=== PATIENT | male | born 1960 | race Caucasian/White ===

== ENCOUNTER 2020-01-31 06:00 | Outpatient (RCR) | payer OTHER, SELFPAY | END 2020-01-31 23:59 | disposition home or self-care (01) | LOC: SOT 06:00 | PROVIDERS: PCP Emergency Medicine Emergency Medical Services; Referring Provider Specialist; Visit Provider Specialist | DX: M77.12 Lateral epicondylitis, left elbow (principal) | CPT/HCPCS: 97035; 97140; 97165 ==

== ENCOUNTER 2020-02-01 06:00 | Outpatient (RCR) | payer OTHER, SELFPAY | END 2020-03-01 23:59 | disposition home or self-care (01) | LOC: SOT 06:00 | PROVIDERS: PCP Emergency Medicine Emergency Medical Services; Referring Provider Specialist; Visit Provider Specialist | DX: M77.12 Lateral epicondylitis, left elbow (principal) | CPT/HCPCS: 97035; 97110; 97140 ==

== ENCOUNTER 2020-10-17 10:37 | Emergency (ER) | payer OTHER, SELFPAY ==
[2020-10-17 11:02] VITALS: BP 126/78; PULSE 72; RESP 16; TEMP 36.5; O2SAT 96; BMI 27.7
--- NOTE | 2020-10-17 12:44 | W.ED.EXTPRO ---
HPI - Extremity Problem General: Chief complaint: Extremity Problem,Nontraumatic Stated complaint: Bilateral arm pain/left worse Time Seen by Provider: 10/17/20 12:28 Source: patient Mode of arrival: ambulatory Limitations: no limitations History of Present Illness: HPI Narrative: Patient is a nice 60-year-old male who presents to ED today with a complaint of left elbow pain. Patient tells me he has had the pain for over a year. He states at one time he followed up with Dr. Black who diagnosed him with a left elbow tendinitis. He underwent 6 weeks of physical therapy and states he did feel like this helped with his symptoms. He states a few months ago [place] the farm and re-injured it. He states pain has been more bothersome since then. He denies redness, swelling, color/temperature changes to the extremity. Denies numbness/tingling/loss of sensation. Pain is worse with range of motion. He has been using an elbow sleeve/compression to help with discomfort. MD Complaint: extremity pain and joint pain Onset (ago): month(s) Pain Consistency: constant Location: left and elbow Quality: aching Radiation: none Relieving factors: nothing Exacerbating factors: range of motion Associated symptoms: Reports no associated symptoms; Deny chest pain, fever(s) or rash Review of Systems Const: Denies: fever(s) or chills Card: Denies: chest pain Resp: Denies: dyspnea Musc: Reports: joint pain (L elbow); Denies: neck pain, back pain, extremity swelling, joint swelling, joint stiffness or limited range of motion Skin/Breast: Denies: rash Neuro: Denies: numbness in extremities, weakness in extremities or sensory changes PFS ED PFSH: Social History Smoking and tobacco status: never smoked Alcohol intake: current Alcohol intake frequency: few times a month Physical Exam Const: COMMON NORMALS: no acute distress, average body habitus, patient oriented x3, no limitations, healthy appearing, alert and well nourished Extremity: COMMON NORMALS: normal to inspection, full ROM and capillary refill normal GENERAL: Yes normal exam except as noted OTHER: pt has pain to lateral epicondyle and into forearm EXTREMITY IMAGE (FRONT): 1. area of discomfort Neuro: COMMON NORMALS: patient oriented x3, moves all extremities, no focal motor deficits and no sensory deficits noted SENSORIUM/ORIENTATION: Yes alert Skin: COMMON NORMALS: no rashes or lesions noted GENERAL SKIN EXAM: no rashes or lesions noted TRAUMA: no lacerations or abrasions Course Vital Signs: Vital signs: Vital Signs Temperature 97.7 F 10/17/20 11:02 Pulse Rate 72 10/17/20 11:02 Respiratory Rate 16 10/17/20 11:02 Blood Pressure 126/78 10/17/20 11:02 Pulse Oximetry 96 10/17/20 11:02 MDM - Extremity (Nontraumatic) MDM Narrative: Medical decision making narrative: Will treat with IM steroids and steroid taper at home. ME has already placed referral to get patient another appointment with Dr. Black for further evaluation. Discharge Plan Discharge Patient Disposition: Home Clinical Impression: Lateral epicondylitis of left elbow Condition: Stable Prescriptions: New prednisone 10 mg tablet 10 mg PO DAILY 10 Days Qty: 41 RF: 0 No Action omeprazole 20 mg capsule,delayed release(DR/EC) 20 mg PO BID RF: 0 Discharge Orders: Discharge ED (Routine); Ordered 10/17/20 Ordered By: Amy Sung Referrals: Kaveh Zheng DO [Primary Care Provider] - Patient Instructions: Tendinitis (ED) Coding Level of Care Code ED Tannery Gummer for Chg Fwd Exam Expanded Problem Focused
[2020-10-17] MEDS: dexamethasone 10 mg/mL INJ 8 MG IM (12:51)
== END 2020-10-17 13:19 | disposition home or self-care (01) ==
PROVIDERS: Emergency Provider Physician Assistant; PCP Emergency Medicine Emergency Medical Services
DX: M77.12 Lateral epicondylitis, left elbow (principal)
CPT/HCPCS: 96372; 99283; J1100

== ENCOUNTER → 2020-11-15 10:13 | Outpatient (BNVA) | payer OTHER, SELFPAY | PROVIDERS: PCP Emergency Medicine Emergency Medical Services; Referring Provider Emergency Medicine Emergency Medical Services; Visit Provider Specialist | DX: M77.12 Lateral epicondylitis, left elbow (principal) | CPT/HCPCS: 73080 ==

== ENCOUNTER 2020-11-15 10:58 | Outpatient (CLI) | payer OTHER, SELFPAY ==
[2020-11-15 11:54] LABS: Alanine Aminotransferase 20 U/L (0-41); Albumin Level 4.4 g/dL (3.5-5.2); Alkaline Phosphatase 63 IU/L (40-130); Anion Gap 12.4 (5-19); Aspartate Amino Transferase 17 U/L (0-40); Blood Urea Nitrogen 13 mg/dL (6-20); C Reactive Protein 1.2 mg/L (0.0-4.9); Calcium 8.8 mg/dL (8.5-10.5); Carbon Dioxide 26 mmol/L (22-29); Chloride 105 mmol/L (98-107); Globulin 2.8 g/dL (1.3-4.6); Glomerular Filtration Rate 115.8 mL/min (90-130); Glucose 107 mg/dL (65-115); Osmolality Calculated 289 mOsm/kg (285-295); Potassium 4.4 mmol/L (3.5-5.1); Sodium 139 mmol/L (136-145); Total Bilirubin 0.5 mg/dL (0.15-1.2); Total Protein 7.2 g/dL (6.6-8.7)
[2020-11-15 12:04] LABS: Erythrocyte Sedimentation Rate 9 mm/hr (0-10)
[2020-11-16 13:04] LABS: COMPLEMENT COMPONENT C3C 128 mg/dL (82-185); COMPLEMENT COMPONENT C4C 29 mg/dL (15-53)
[2020-11-16 14:43] LABS: ANA SCREEN, IFA NEGATIVE (NEGATIVE)
[2020-11-16 15:17] LABS: CENTROMERE B ANTIBODY <1.0 NEG AI (<1.0 NEG); JO-1 ANTIBODY <1.0 NEG AI (<1.0 NEG); RNP ANTIBODY 3.2 POS AI (<1.0 NEG); SCL-70 ANTIBODY <1.0 NEG AI (<1.0 NEG); SJOGREN'S ANTIBODY (SS-A) <1.0 NEG AI (<1.0 NEG); SM ANTIBODY <1.0 NEG AI (<1.0 NEG); SS-B <1.0 NEG AI (<1.0 NEG)
[2020-11-16 15:47] LABS: Cyclic Citrullinated Peptide <16 UNITS
[2020-11-16 18:37] LABS: THYROID PEROXIDASE ANTIBODIES 2 IU/mL (<9)
[2020-11-17 12:28] LABS: COMPLEMENT, TOTAL (CH50) 60 U/mL (31-60)
[2020-11-22 01:48] LABS: DNA AB (DS) CRITHIDIA,IFA NEGATIVE (NEGATIVE)
== END 2020-11-15 10:59 | disposition home or self-care (01) ==
PROVIDERS: PCP Emergency Medicine Emergency Medical Services; Visit Provider Specialist
DX: M77.12 Lateral epicondylitis, left elbow (principal)
CPT/HCPCS: 80053; 85651; 86140; 86160; 86162; 86235; 86255; 86376; 86431

== ENCOUNTER → 2021-01-17 07:51 | Outpatient (BNVA) | payer OTHER, SELFPAY | PROVIDERS: PCP Emergency Medicine Emergency Medical Services; Visit Provider Specialist | DX: G56.01 Carpal tunnel syndrome, right upper limb (principal); G56.21 Lesion of ulnar nerve, right upper limb; M77.12 Lateral epicondylitis, left elbow; M62.522 Muscle wasting and atrophy, not elsewhere classified, left upper arm; Z87.891 Personal history of nicotine dependence | CPT/HCPCS: 95885; 95910; 99202 ==

== ENCOUNTER 2022-08-03 07:31 | Emergency (ER) | payer OTHER, SELFPAY ==
[2022-08-03 07:42] VITALS: BP 132/86; PULSE 86; RESP 18; TEMP 36.4; O2SAT 94; BMI 27.7
--- NOTE | 2022-08-03 08:00 | ED_ITS ---
HPI - Eye Problem General: Chief complaint: Eye Problems Stated complaint: right eye pain Time Seen by Provider: 08/03/22 07:34 History of Present Illness: Patient is a 62-year-old male who comes to the ED with right eye pain. Symptoms started approximately 5 days ago. Denies any le ft eye complaint. [facility] couple days ago and was started on azithromycin. He has been taking the azithromycin now for several days and his eye pain has not improved and is gotten worse. He rates the pain an 5 out of 10 and feels like a pressure in his right eye. He has had blurry vision since onset of symptoms. Patient has pain in right eye with any ocular movements. Denies any foreign body or irritant into eye, causing symptoms. Patient wears glasses to help with his vision and reading. Associated symptoms: Denies fever(s), headache(s), nausea, neck pain or vomiting Review of Systems Const: Denies: fever(s), chills or fatigue Eyes: Reports: blurry vision (Right eye) and eye discomfort (Right eye); Denies: change in vision ENMT: Denies: throat pain, odynophagia, nasal discharge or nasal congestion Card: Denies: chest pain, palpitations, edema, swelling of feet/ankles, dyspnea on exertion or orthopnea Resp: Denies: dyspnea, productive cough or non-productive cough GI: Denies: abdominal pain, nausea, vomiting, diarrhea, constipation or hematochezia : Denies: flank pain, difficulty urinating, dysuria or hematuria Musc: Denies: neck pain, back pain or extremity swelling Skin/Breast: Denies: rash or new lesions Neuro: Denies: headache(s), numbness in extremities or weakness in extremities PFS ED PFSH: Medical History GERD (gastroesophageal reflux disease) No pertinent family history Social History Smoking and tobacco status: former smoker Alcohol intake: current Alcohol intake frequency: few times a month Physical Exam Const: COMMON NORMALS: no acute distress, patient oriented x3 and alert GENERAL APPEARANCE: cooperative and comfortable HENMT: COMMON NORMALS: normocephalic HEAD & SCALP: normocephalic FACE & SINUS: edema (Mild periorbital and maxillofacial swelling.) on the right periorbital and maxilla MOUTH: Normal oral and palatal mucosa present THROAT: posterior oropharynx normal and uvula midline Eye: COMMON NORMALS: Equal, round and reactive pupils present and EOMs intact bilaterally (Endorsed pain with ocular movements) PERIORBITAL: periorbital findings abnormal positive right periorbital swelling (Mild swelling); no erythema CONJUNCTIVA: Yes conjunctival abnormal positive right conjunctival injection (Very mild eye redness) diffuse PUPIL: Yes Equal, round and reactive pupils present OTHER: Tonometer pressures checked multiple times in right eye?22 mmHg Neck/C-Spine: COMMON NORMALS: supple GENERAL: Yes normal visual inspection Resp: COMMON NORMALS: normal respiratory effort, No retractions, No use of accessory muscles and clear to auscultation bilaterally AUSCULTATION: clear to auscultation bilaterally Cardio: COMMON NORMALS: regular rate, regular rhythm, S1 normal heart sound present, S2 normal heart sound present, No gallops present (Cardio), No clicks present (Cardio), No murmurs present (Cardio) and Peripheral pulses 2+ throughout RATE: regular rate RHYTHM: regular rhythm HEART SOUNDS: S1 normal heart sound present and S2 normal heart sound present PERIPHERAL PULSES: Peripheral pulses 2+ throughout GI: COMMON NORMALS: Normal to inspection, nondistended, normoactive bowel sounds present, Soft to palpation, non-tender and no masses PALPATION: Yes Soft to palpation : COMMON NORMALS: Yes no CVA tenderness BLADDER/KIDNEY EXAM: Yes no CVA tenderness Back/Pelvis: COMMON NORMALS: no CVA tenderness Extremity: COMMON NORMALS: normal to inspection Neuro: COMMON NORMALS: patient oriented x3 SENSORIUM/ORIENTATION: Yes alert GAIT: Yes Normal gait present Skin: GENERAL SKIN EXAM: dry skin Course Consultations: Consultation #1: I contacted Dr. Kaveh M[facility]quez at [facility] and told about patient case, labs and CT orbital findings. Given patient's complaint of right eye pain and blurriness, exam findings described and labs he thinks the lateral orbital cellulitis is more of an over read by radiologist on CT report. He recommends giving patient an TobraDex eyedrops. and some of the other differential diagnosis can be further evaluated at clinic on Friday morning. He told me to have patient call Dr[facility] on Friday to set up an appointment for further evaluation later that day. Time: 10:45 Vital Signs: Vital signs: Vital Signs Temperature 97.5 F L 08/03/22 07:42 Pulse Rate 86 08/03/22 07:42 Respiratory Rate 18 08/03/22 07:42 Blood Pressure 132/86 08/03/22 07:42 Pulse Oximetry 98 08/03/22 09:31 Oxygen Delivery Me thod 08/03/22 09:31 MDM - Eye Problem Medical Decision Making Patient is a 62-year-old male comes to the ED with right eye pain and blurry vision. Symptoms have been going on for the past 5 days. Denies any irritant or foreign body in eye. Vitals are stable. Patient has some very mild periorbital right maxillary facial swelling and some mild right eye conjunct ivitis. Right eye tonometer was 22 mmHg. full range of motion of extraocular movements but did endorse some right eye pain with movement. Rest of exam is benign and patient appears healthy and in no acute distress. I contacted Dr. Kaveh M[facility]quez at [facility] and told about patient case, labs and CT orbital findings. Given patient's complaint of right eye pain and blurriness, exam findings described and labs he thinks the lateral orbital cellulitis is more of an over read by radiologist on CT report. He recommends giving patient TobraDex eyedrops. some of the other differential diagnosis can be further evaluated at clinic on Friday morning. He told me to have patient call Dr. Arnold s eye clinic on Friday to set up an appointment for later that day for further evaluation. Lab Data I reviewed the patient's lab results. 08/03/22 08:10 08/03/22 08:[address] 08/03/22 08:02 IMPRESSION: No acute intracranial pathology. Orbit CT 08/03/22 08:02 IMPRESSION: 1. Bilateral inflammatory stranding surrounding the globe margins fairly symmetric. 2. Bilateral soft tissue inflammatory stranding surrounding the margin of extraocular muscles and optic nerves with asymmetric accentuated right optic nerve and greater soft tissue changes of the extraocular musculature margins on the right. The overall differential diagnostic consideration of above described findings might include a process of nonspecific bilateral orbital cellulitis, thyroid eye disease, orbital pseudotumor, optic Perineuritis, Periscleritis. Laboratory Results WBC 6.2 10^3/uL (4.0-10.0) 08/03/22 08:10 RBC 4.49 10^6/uL (4.1-5.3) 08/03/22 08:10 Hgb 14.5 g/dL (11.7-16.6) 08/03/22 08:10 Hct 42.1 % (42.0-52.0) 08/03/22 08:10 MCV 93.8 fl (80-94) 08/03/22 08:10 MCH 32.3 pg (28.0-34.0) 08/03/22 08:10 MCHC 34.4 g/dL (30.0-36.0) 08/03/22 08:10 RDW 11.4 % (12.1-15.1) L 08/03/22 08:10 Plt Count 220 10^3/cmm (130-400) 08/03/22 08:10 MPV 10.0 fL (7.4-10.4) 08/03/22 08:10 Neut % (Auto) 59.3 % 08/03/22 08:10 Lymph % (Auto) 28.7 % 08/03/22 08:10 [place] % (Auto) 9.5 % 08/03/22 08:10 Eos % (Auto) 1.4 % 08/03/22 08:10 Baso % (Auto) 0.8 % 08/03/22 08:10 Neut # (Auto) 3.68 10^3/uL (1.8-7.7) 08/03/22 08:10 Lymph # (Auto) 1.8 10^3/uL (0.8-4.8) 08/03/22 08:10 [place] # (Auto) 0.6 10^3/uL (0.2-0.9) 08/03/22 08:10 Eos # (Auto) 0.1 10^3/uL (0.0-0.8) 08/03/22 08:10 Baso # (Auto) 0.1 10^3/uL (0.0-0.1) 08/03/22 08:10 Nucleated RBC % (auto) 0 % 08/03/22 08:10 Nucleated RBCs # 0.0 /100WBC 08/03/22 08:10 Sodium 132 mmol/L (136-145) L 08/03/22 08:10 Potassium 4.2 mmol/L (3.5-5.1) 08/03/22 08:10 Chloride 97 mmol/L (98-107) L 08/03/22 08:10 Carbon Dioxide 24 mmol/L (22-29) 08/03/22 08:10 Anion Gap 15.2 (5-19) 08/03/22 08:10 BUN 11 mg/dL (8-23) 08/03/22 08:10 Creatinine 0.7 mg/dL (0.7-1.2) 08/03/22 08:10 GFR Calculation 115.0 mL/min (90-130) 08/03/22 08:10 Glucose 107 mg/dL (65-115) 08/03/22 08:10 Calculated Osmolality 274 mOsm/kg (285-295) L 08/03/22 08:10 Calcium 9.2 mg/dL (8.5-10.5) 08/03/22 08:10 Discharge Plan Discharge Patient Disposition: Home Clinical Impression: Ocular pain, right eye Conjunctivitis, right eye Qualifiers: Conjunctivitis type: acute Acute conjunctivitis type: unspecified Qualified Code(s): H10.31 - Unspecified acute conjunctivitis, right eye Condition: Stable Prescriptions: New TobraDex 0.3-0.1 % drops,suspension 2 drp ophthalmic (eye) Q6H 7 Days Qty: 5 0RF No Action omeprazole 20 mg capsule,delayed release(DR/EC) 20 mg PO BID multivitamin Tablet 1 tab PO DAILY Fish Oil Concentrate 1,000 mg Capsule 1,000 mg PO DAILY CoQ-10 30 mg Capsule 30 mg PO DAILY ezetimibe 10 mg Tablet 10 mg PO DAILY Discharge Orders: Discharge ED (Routine); Ordered 08/03/22 Ordered By: Matthew Patel Referrals: Kaveh Zheng, DO [Primary Care Provider] - Discharge Diet: Regular Discharge Activity: Resume usual activity Activity Restrictions/Additional Instructions: Follow-up with medical provider as directed. Call Dr[facility] on Friday morning phone number is [phone]. Address is [address] [place]. take medications as prescribed. Return to the ER or your medical pr ovider if condition worsens. Please read and understand discharge instructions. If any questions, please ask. Coding Level of Care Code ED Survey Research Manager for Gabe El
--- NOTE | 2022-08-03 08:02 | CTR_ITS ---
PROCEDURE INFORMATION: Exam: CT Orbits With Contrast Exam date and time: 08/03/2022 9:00 AM Age: 62 years old Clinical indication: Other: Right eye pain, pain with occular movements, facial swelling TECHNIQUE: Imaging protocol: Computed tomography of the orbits with contrast. Radiation optimization: All CT scans at this facility use at least one of these dose optimization techniques: automated exposure control; mA and/or kV adjustment per patient size (includes targeted exams where dose is matched to clinical indication); or iterative reconstruction. Contrast material: OMNI 350; Contrast volume: 75 ml; Contrast route: INTRAVENOUS (IV); REPORTING DATA: Count of CT and Cardiac NM exams in prior 12 months: This patient has received [address] and 0 known cardiac nuclear medicine studies in the 12 months prior to the current study. COMPARISON: CT cervical spine w con [id number] 06/16/2018 10:40 AM RADIATION DOSE METRICS: Total DLP (mGy-cm): 410.7 FINDINGS: Paranasal sinuses: Focal mucosal thickening of the left maxillary sinus incompletely included. Mild mucosal thickening of ethmoid sinuses. Orbital cavities: There is fairly symmetric soft tissue thickening and stranding at the globe margins bilaterally. The globes are symmetric. Lens position is symmetric and symmetric in size. There is minor stranding and irregular margination of the optic nerves bilaterally. Asymmetric accentuated right optic nerve relative to the left with diameter of the right optic nerve maximal 7.8 mm and maximum diameter of the left optic nerve 0.68 mm. Bones/joints: Minor deviation of the bony nasal septum. Soft tissues: There is mild soft tissue edema disorder inflammatory stranding surrounding the margin extraocular musculature bilaterally with greatest involvement on the right. There is no enhancing fluid collection to suggest abscess. There is no significant inflammatory stranding within the retro conal fat. There is no significant expansion of extraocular musculature. CT/CT [place] w con [id number] IMPRESSION: 1. Bilateral inflammatory stranding surrounding the globe margins fairly symmetric. 2. Bilateral soft tissue inflammatory stranding surrounding the margin of extraocular muscles and optic nerves with asymmetric accentuated right optic nerve and greater soft tissue changes of the extraocular musculature margins on the right. The overall differential diagnostic consideration of above described findings might include a process of nonspecific bilateral orbital cellulitis, thyroid eye disease, orbital pseudotumor, optic Perineuritis, Periscleritis.
--- NOTE | 2022-08-03 08:02 | CTR_ITS ---
PROCEDURE INFORMATION: Exam: CT Head Without Contrast Exam date and time: 08/03/2022 9:00 AM Age: 62 years old Clinical indication: Other: Right eye vision change TECHNIQUE: Imaging protocol: Computed tomography of the head without contrast. Radiation optimization: All CT scans at this facility use at least one of these dose optimization techniques: automated exposure control; mA and/or kV adjustment per patient size (includes targeted exams where dose is matched to clinical indication); or iterative reconstruction. REPORTING DATA: Count of CT and Cardiac NM exams in prior 12 months: This patient has received [address] and 0 known cardiac nuclear medicine studies in the 12 months prior to the current study. COMPARISON: None RADIATION DOSE METRICS: Total DLP (mGy-cm): 1259.7 FINDINGS: Brain: Symmetric prominence of the cortical and cerebellar sulci. Minimal small vessel ischemic change. No acute cortical infarct, mass effect, or intracranial hemorrhage. Cerebral ventricles: Normal configuration of the ventricles. Paranasal sinuses: No sinus fluid. Mastoid air cells: No mastoid effusion. Bones/joints: No acute calvarial pathology. Soft tissues: Unremarkable soft tissues. CT/CT head wo con* [id number] IMPRESSION: No acute intracranial pathology.
[2022-08-03] MEDS: HYDROcodone-acetaminophen 7.5-325 mg Tablet 1 TAB PO (08:16)
[2022-08-03 08:27] LABS: Basophils # 0.1 10^3/uL (0.0-0.1); Basophils % 0.8 %; Eosinophils # 0.1 10^3/uL (0.0-0.8); Eosinophils % 1.4 %; Hematocrit 42.1 % (42.0-52.0); Hemoglobin 14.5 g/dL (11.7-16.6); Lymphocytes # 1.8 10^3/uL (0.8-4.8); Lymphocytes % 28.7 %; Mean Corpuscular HGB Conc 34.4 g/dL (30.0-36.0); Mean Corpuscular Hemoglobin 32.3 pg (28.0-34.0); Mean Corpuscular Volume 93.8 fl (80-94); Monocytes # 0.6 10^3/uL (0.2-0.9); Monocytes % 9.5 %; Neutrophils # 3.68 10^3/uL (1.8-7.7); Neutrophils % 59.3 %; Nucleated Red Blood Cells % 0 %; Platelet Count 220 10^3/cmm (130-400); Red Blood Count 4.49 10^6/uL (4.1-5.3); Red Cell Distribution Width 11.4 % (12.1-15.1); White Blood Count 6.2 10^3/uL (4.0-10.0)
[2022-08-03 08:48] LABS: Blood Urea Nitrogen 11 mg/dL (8-23); Calcium 9.2 mg/dL (8.5-10.5); Carbon Dioxide 24 mmol/L (22-29); Chloride 97 mmol/L (98-107); Glucose 107 mg/dL (65-115); Osmolality Calculated 274 mOsm/kg (285-295); Sodium 132 mmol/L (136-145)
[2022-08-03 09:08] LABS: Anion Gap 15.2 (5-19); Potassium 4.2 mmol/L (3.5-5.1)
[2022-08-03] MEDS: iohexol 350 mg/mL 500 mL Btl (per mL) IV (09:28)
[2022-08-03 09:31] VITALS: O2SAT 98
[2022-08-03] MEDS: cefTRIAXone 2,000 MG in sodium chloride 0.9% (plus) 50 ML 100 MG IV (10:48)
== END 2022-08-03 11:17 | disposition home or self-care (01) ==
PROVIDERS: Emergency Provider Physician Assistant; PCP Emergency Medicine Emergency Medical Services
DX: H10.31 Unspecified acute conjunctivitis, right eye (principal)
CPT/HCPCS: 70450; 70481; 80048; 85025; 96374; 99285; J0696; Q9967

== ENCOUNTER 2022-08-04 08:31 | Emergency (ER) | payer OTHER, SELFPAY ==
[2022-08-04 08:36] VITALS: BP 146/87; PULSE 84; RESP 14; TEMP 36.7; O2SAT 96; BMI 27.7
[2022-08-04 09:04] LABS: Basophils # 0.1 10^3/uL (0.0-0.1); Basophils % 0.7 %; Eosinophils # 0.1 10^3/uL (0.0-0.8); Eosinophils % 0.9 %; Hematocrit 43.6 % (42.0-52.0); Lymphocytes # 1.8 10^3/uL (0.8-4.8); Lymphocytes % 26.3 %; Mean Corpuscular HGB Conc 34.4 g/dL (30.0-36.0); Monocytes # 0.5 10^3/uL (0.2-0.9); Monocytes % 7.1 %; Neutrophils # 4.49 10^3/uL (1.8-7.7); Neutrophils % 64.7 %; Nucleated Red Blood Cells % 0 %; Platelet Count 254 10^3/cmm (130-400); Red Blood Count 4.54 10^6/uL (4.1-5.3); Red Cell Distribution Width 11.7 % (12.1-15.1); White Blood Count 6.9 10^3/uL (4.0-10.0)
--- NOTE | 2022-08-04 09:13 | W.ED.EYEPROB ---
Documented by User: Yenifer Paez PA-C 08/04/22 09:47 HPI - Eye Problem General: Chief complaint: Eye Problems Stated complaint: right eye pain Time Seen by Provider: 08/04/22 08:57 Source: patient Mode of arrival: ambulatory Limitations: no limitations History of Present Illness: 62-year-old male presents to the ER for the second time in 24 hours for right eye pain. Patient reports this began about 7 days ago. Patient thought he had a sinus infection and was seen by his PCP. Patient was given azithromycin. Patient reports he took a couple of doses of that however the pain started worsening. Patient reports his vision started getting more blurry. Patient has pain with any movement of the right eye. He denies any redness of that eye or redness surrounding that eye. Patient reports he was seen yesterday and given eyedrops, he did start those. Patient reports since then he has had worsening blurry vision and worsening headache. He reports there is still pain with movement of the right eye. Patient reports he has never had this before. He denies any family history of any eye issues. Patient denies any systemic symptoms such as abnormal weight loss or fevers. Patient reports prior to Friday or Friday of last week he did not have any issues. Review of Systems General: Reports: 10 or more systems reviewed and unremarkable except in HPI and below PFSH ED PFSH: Medical History GERD (gastroesophageal reflux disease) No pertinent family history Social History Smoking and tobacco status: former smoker Alcohol intake: current Alcohol intake frequency: few times a month Physical Exam Const: COMMON NORMALS: average body habitus, patient oriented x3, no limitations, healthy appearing, alert and well nourished HENMT: COMMON NORMALS: normocephalic, atraumatic, external ears normal, Normal nasal mucous membranes and turbinates present and moist oral mucous membranes HEAD & SCALP: normocephalic and atraumatic NOSE: Normal nasal mucous membranes and turbinates present EXTERNAL EAR: Yes external ears normal Eye: COMMON NORMALS: Equal, round and reactive pupils present, EOMs intact bilaterally and conjunctivae normal GENERAL EYE: appearance normal, both eyes and all related structures VISUAL ACUITY: Yes visual acuity right eye Visual acuity (R) = 20/: 200 VISUAL JOHNSON: No peripheral vision loss and No central vision loss ALIGNMENT: Yes alignment normal PERIORBITAL: periorbital findings normal (no erythema or swelling) EYELID: eyelids normal CONJUNCTIVA: Yes conjunctivae normal SCLERA: sclerae normal CORNEA: Yes corneas normal PUPIL: Yes Equal, round and reactive pupils present EOM: Yes EOM abnormal (pain with movement) Resp: COMMON NORMALS: normal respiratory effort EFFORT & INSPECTION: Yes able to speak in complete sentences Cardio: COMMON NORMALS: regular rate and regular rhythm RATE: regular rate RHYTHM: regular rhythm Extremity: COMMON NORMALS: no pedal edema Neuro: COMMON NORMALS: patient oriented x3 SENSORIUM/ORIENTATION: Yes alert Psych: COMMON NORMALS: mental status grossly normal, Normal thought process present and cooperative THOUGHT PROCESS: Normal thought process present Skin: COMMON NORMALS: no rashes or lesions noted and no wounds GENERAL SKIN EXAM: no rashes or lesions noted Course ED course: Patient presents to the ER today for worsening eye pain and blurry vision. Patient was seen yesterday. Patient was given eyedrops however even with using them symptoms have worsened. Patient's case was discussed with Dr. Márquez yesterday who thought that the CT was likely an over read. CT indicated possible cellulitis versus neuritis. Dr. Márquez and the PA in the ER yesterday did not feel it was likely a cellulitis given physical exam findings. We will get a CBC today. I will also call Dr. Márquez back about this patient. I will also speak with Dr. Candelaria. Consultations: Consultation #1: I spoke with Dr. Márquez, eye doctor, who still thinks this is an issue of an optic neuritis versus orbital cellulitis. Patient's physical exam findings are not of a cellulitis. The conjunctivitis normal-appearing and there is no erythema surrounding the eye, no obvious swelling. Dr. Márquez will have patient seen for Hartmann in the morning. He recommends 1 mg/kg of prednisone x1 week. Also recommends adding doxycycline twice daily for 7 to 10 days. Recommends Solu-Medrol given in the ER today. Time: 09:20 Vital Signs: Vital signs: Vital Signs Temperature 98.1 F 08/04/22 08:36 Pulse Rate 84 08/04/22 08:36 Respiratory Rate 14 08/04/22 08:36 Blood Pressure 146/87 08/04/22 08:36 Pulse Oximetry 96 08/04/22 08:36 Oxygen Delivery Me thod 08/04/22 08:36 MDM - Eye Problem Medical Decision Making Patient's white count is normal. Patient does have significantly worsened vision however after speaking with Dr. Márquez, this is to be expected with a neuritis. He suspects an optic neuritis of unknown cause at this time. Patient's pain has also worsened as has his headache. Dr. Márquez recommended significant doses of steroids. He would recommend Solu-Medrol in the ER followed by 1 mg/kg daily of prednisone for 1 week. He also recommends going ahead and starting patient on doxycycline 100 mg twice daily. Patient should contact Dr. Márquez clinic first thing in the morning and he will be seen by them again. At that time they will order a prednisone taper for patient to follow after his week of high-dose prednisone. Patient and were educated about the plan of treatment. Patient should continue the eyedrops at this time. Patient was also given hydrocodone for pain. He did take 1 prior to arrival which seemed to help some. I stressed the importance of following up with Dr. Márquez tomorrow. Return to the ER with any significantly worsening symptoms. Patient verbalized understanding and was in agreement with the treatment plan. Lab Data 08/04/22 08:52 Laboratory Results WBC 6.9 10^3/uL (4.0-10.0) 08/04/22 08:52 RBC 4.54 10^6/uL (4.1-5.3) 08/04/22 08:52 Hgb 15.0 g/dL (11.7-16.6) 08/04/22 08:52 Hct 43.6 % (42.0-52.0) 08/04/22 08:52 MCV 96.0 fl (80-94) H 08/04/22 08:52 MCH 33.0 pg (28.0-34.0) 08/04/22 08:52 MCHC 34.4 g/dL (30.0-36.0) 08/04/22 08:52 RDW 11.7 % (12.1-15.1) L 08/04/22 08:52 Plt Count 254 10^3/cmm (130-400) 08/04/22 08:52 MPV 10.0 fL (7.4-10.4) 08/04/22 08:52 Neut % (Auto) 64.7 % 08/04/22 08:52 Lymph % (Auto) 26.3 % 08/04/22 08:52 Trimble % (Auto) 7.1 % 08/04/22 08:52 Eos % (Auto) 0.9 % 08/04/22 08:52 Baso % (Auto) 0.7 % 08/04/22 08:52 Neut # (Auto) 4.49 10^3/uL (1.8-7.7) 08/04/22 08:52 Lymph # (Auto) 1.8 10^3/uL (0.8-4.8) 08/04/22 08:52 Trimble # (Auto) 0.5 10^3/uL (0.2-0.9) 08/04/22 08:52 Eos # (Auto) 0.1 10^3/uL (0.0-0.8) 08/04/22 08:52 Baso # (Auto) 0.1 10^3/uL (0.0-0.1) 08/04/22 08:52 Nucleated RBC % (auto) 0 % 08/04/22 08:52 Nucleated RBCs # 0.0 /100WBC 08/04/22 08:52 ESR 35 mm/hr (0-10) H 08/04/22 08:52 C-Reactive Protein 3.0 mg/L (0.0-4.9) 08/04/22 08:52 Critical Care Time Critical Care Time: Critical Care Time: No Discharge Plan Discharge Patient Disposition: Home Clinical Impression: Optic neuritis, right Condition: Stable Prescriptions: New prednisone 20 mg tablet 80 mg PO DAILY 7 Days Qty: 28 0RF doxycycline hyclate 100 mg tablet 100 mg PO BID 10 Days Qty: 20 0RF hydrocodone-acetaminophen 5-325 mg tablet 1 tab PO Q6H PRN (Reason: pain) 3 Days Qty: 12 0RF No Action omeprazole 20 mg capsule,delayed release(DR/EC) 20 mg PO BID multivitamin Tablet 1 tab PO DAILY Fish Oil Concentrate 1,000 mg Capsule 1,000 mg PO DAILY CoQ-10 30 mg Capsule 30 mg PO DAILY ezetimibe 10 mg Tablet 10 mg PO DAILY TobraDex 0.3-0.1 % drops,suspension 2 drp ophthalmic (eye) Q6H 7 Days Qty: 5 0RF Discharge Orders: Discharge ED (Routine); Ordered 08/04/22 Ordered By: Yenifer Paez Referrals: Kaveh Zheng DO [Primary Care Provider] - Discharge Diet: Usual diet Discharge Activity: Resume usual activity Patient Instructions: Opioid Safety, Pain Management Activity Restrictions/Additional Instructions: Contact Dr. Márquez's office first thing in the morning for appointment. Take prednisone as prescribed. Take hydrocodone as prescribed. Return to the ER with any significantly worsening symptoms. Coding Level of Care Code ED [employer] Caretaker for Chg Fwd Documented by User: Jose Alfredo Garcia DO 08/05/22 06:43 HPI - Eye Problem General: Chief complaint: Eye Problems Stated complaint: right eye pain Time Seen by Provider: 08/04/22 08:57 PFSH ED PFSH: Medical History GERD (gastroesophageal reflux disease) No pertinent family history Social History Smoking and tobacco status: former smoker Alcohol intake: current Alcohol intake frequency: few times a month Course Vital Signs: Vital signs: Vital Signs Temperature 98.1 F 08/04/22 08:36 Pulse Rate 84 08/04/22 08:36 Respiratory Rate 14 08/04/22 08:36 Blood Pressure 146/87 08/04/22 08:36 Pulse Oximetry 96 08/04/22 08:36 Oxygen Delivery Me thod 08/04/22 08:36 MDM - Eye Problem Medical Decision Making Patient's white count is normal. Patient does have significantly worsened vision however after speaking with Dr. Márquez, this is to be expected with a neuritis. He suspects an optic neuritis of unknown cause at this time. Patient's pain has also worsened as has his headache. Dr. Márquez recommended significant doses of steroids. He would recommend Solu-Medrol in the ER followed by 1 mg/kg daily of prednisone for 1 week. He also recommends going ahead and starting patient on doxycycline 100 mg twice daily. Patient should contact Dr. Márquez clinic first thing in the morning and he will be seen by them again. At that time they will order a prednisone taper for patient to follow after his week of high-dose prednisone. Patient and were educated about the plan of treatment. Patient should continue the eyedrops at this time. Patient was also given hydrocodone for pain. He did take 1 prior to arrival which seemed to help some. I stressed the importance of following up with Dr. Márquez tomorrow. Return to the ER with any significantly worsening symptoms. Patient verbalized understanding and was in agreement with the treatment plan. Chart reviewed and patient discussed with midlevel. Agree with assessment and plan. Lab Data 08/04/22 08:52 Laboratory Results WBC 6.9 10^3/uL (4.0-10.0) 08/04/22 08:52 RBC 4.54 10^6/uL (4.1-5.3) 08/04/22 08:52 Hgb 15.0 g/dL (11.7-16.6) 08/04/22 08:52 Hct 43.6 % (42.0-52.0) 08/04/22 08:52 MCV 96.0 fl (80-94) H 08/04/22 08:52 MCH 33.0 pg (28.0-34.0) 08/04/22 08:52 MCHC 34.4 g/dL (30.0-36.0) 08/04/22 08:52 RDW 11.7 % (12.1-15.1) L 08/04/22 08:52 Plt Count 254 10^3/cmm (130-400) 08/04/22 08:52 MPV 10.0 fL (7.4-10.4) 08/04/22 08:52 Neut % (Auto) 64.7 % 08/04/22 08:52 Lymph % (Auto) 26.3 % 08/04/22 08:52 Trimble % (Auto) 7.1 % 08/04/22 08:52 Eos % (Auto) 0.9 % 08/04/22 08:52 Baso % (Auto) 0.7 % 08/04/22 08:52 Neut # (Auto) 4.49 10^3/uL (1.8-7.7) 08/04/22 08:52 Lymph # (Auto) 1.8 10^3/uL (0.8-4.8) 08/04/22 08:52 Trimble # (Auto) 0.5 10^3/uL (0.2-0.9) 08/04/22 08:52 Eos # (Auto) 0.1 10^3/uL (0.0-0.8) 08/04/22 08:52 Baso # (Auto) 0.1 10^3/uL (0.0-0.1) 08/04/22 08:52 Nucleated RBC % (auto) 0 % 08/04/22 08:52 Nucleated RBCs # 0.0 /100WBC 08/04/22 08:52 ESR 35 mm/hr (0-10) H 08/04/22 08:52 C-Reactive Protein 3.0 mg/L (0.0-4.9) 08/04/22 08:52 Discharge Plan Discharge Patient Disposition: Home Clinical Impression: Optic neuritis, right Condition: Stable Prescriptions: New prednisone 20 mg tablet 80 mg PO DAILY 7 Days Qty: 28 0RF doxycycline hyclate 100 mg tablet 100 mg PO BID 10 Days Qty: 20 0RF hydrocodone-acetaminophen 5-325 mg tablet 1 tab PO Q6H PRN (Reason: pain) 3 Days Qty: 12 0RF No Action omeprazole 20 mg capsule,delayed release(DR/EC) 20 mg PO BID multivitamin Tablet 1 tab PO DAILY Fish Oil Concentrate 1,000 mg Capsule 1,000 mg PO DAILY CoQ-10 30 mg Capsule 30 mg PO DAILY ezetimibe 10 mg Tablet 10 mg PO DAILY TobraDex 0.3-0.1 % drops,suspension 2 drp ophthalmic (eye) Q6H 7 Days Qty: 5 0RF Discharge Orders: Discharge ED (Routine); Ordered 08/04/22 Ordered By: Yenifer Paez Referrals: Kaveh Zheng DO [Primary Care Provider] - Discharge Diet: Usual diet Discharge Activity: Resume usual activity Patient Instructions: Opioid Safety, Pain Management Activity Restrictions/Additional Instructions: Contact Dr. Márquez's office first thing in the morning for appointment. Take prednisone as prescribed. Take hydrocodone as prescribed. Return to the ER with any significantly worsening symptoms. Coding Level of Care Code ED [employer] C[employer]aker for Gabe El
[2022-08-04 11:51] LABS: Erythrocyte Sedimentation Rate 35 mm/hr (0-10)
== END 2022-08-04 09:40 | disposition home or self-care (01) ==
PROVIDERS: Emergency Provider Physician Assistant; PCP Emergency Medicine Emergency Medical Services
DX: H46.9 Unspecified optic neuritis (principal)
CPT/HCPCS: 36415; 85025; 85651; 86140; 96372; 99284; J2930

== ENCOUNTER → 2022-12-19 09:58 | Outpatient (BNVA) | payer OTHER, SELFPAY | PROVIDERS: PCP Emergency Medicine Emergency Medical Services; Referring Provider Emergency Medicine Emergency Medical Services; Visit Provider Dermatology | DX: L82.0 Inflamed seborrheic keratosis (principal); L72.8 Other follicular cysts of the skin and subcutaneous tissue; D17.1 Benign lipomatous neoplasm of skin and subcutaneous tissue of trunk; L82.1 Other seborrheic keratosis; L81.4 Other melanin hyperpigmentation; L91.8 Other hypertrophic disorders of the skin | CPT/HCPCS: 11102; 11200; 17110; 99203 ==

== ENCOUNTER → 2023-12-22 09:08 | Outpatient (BNVA) | payer OTHER, SELFPAY | PROVIDERS: PCP Emergency Medicine Emergency Medical Services; Visit Provider Nurse Practitioner Family | DX: D17.1 Benign lipomatous neoplasm of skin and subcutaneous tissue of trunk (principal); L82.1 Other seborrheic keratosis; L81.4 Other melanin hyperpigmentation; L57.0 Actinic keratosis; L23.7 Allergic contact dermatitis due to plants, except food; L84 Corns and callosities | CPT/HCPCS: 17000; 99214 ==

== ENCOUNTER → 2024-07-14 10:16 | Outpatient (BNVA) | payer OTHER, SELFPAY | PROVIDERS: PCP Emergency Medicine Emergency Medical Services; Visit Provider Surgery | DX: K82.9 Disease of gallbladder, unspecified (principal); R03.0 Elevated blood-pressure reading, without diagnosis of hypertension | CPT/HCPCS: 99204 ==

== ENCOUNTER 2024-08-02 06:51 | Day surgery (SDC) | payer OTHER, SELFPAY ==
[2024-08-02] VITALS (12 sets, daily range): BP systolic 104–154; BP diastolic 76–83; PULSE 74–85; RESP 10–20; TEMP 36.1; O2SAT 93–96; BMI 27.7
--- NOTE | 2024-08-02 06:54 | W.PM.OPSUD ---
Surgery/Procedure H&P Update DATE OF PROCEDURE: August 02, 2024 DATE H&P PERFORMED: 07/14/24 H&P UPDATE INFORMATION: I have reviewed H&P completed within last 30 days, I have examined patient prior to procedure, No changes to prior documentation and [place] [facility] [place] indicated PLANNED PROCEDURE: Operation Date: 08/02/24 08:15 Proposed Procedures p Laparoscopic Cholecystectomy 35033, K82.9(Not Applicable) - Malik Johnston MD
[2024-08-02] MEDS: sodium chloride 0.9% 1,000 ML 30 ML IV (07:08)
--- NOTE | 2024-08-02 07:59 | ANES.PREANE2 ---
Pre-Anesthetic Assessment Height/Weight: Height 6 ft 1 in Weight 210 lb Temp Pulse Resp BP Pulse Ox O2 Del Method 97.0 F L 74 18 154/80 96 Room Air 08/02/24 06:57 08/02/24 06:57 08/02/24 06:57 08/02/24 06:57 08/02/24 06:57 08/02/24 07:05 Preop Diagnosis: Chronic cholecystitis Operation Date: 08/02/24 08:15 Proposed Procedures p Laparoscopic Cholecystectomy 09573, K82.9(Not Applicable) - Malik Johnston MD Was Beta Preeti taken within 24 hours: N/A Was Clonidine taken within 24 hours: N/A Last intake: Intake Last Liquid Date 08/01/24 Last Liquid Time 18:00 Last Solid Date 08/01/24 Last Solid Time 18:00 Social No alcohol and No tobacco Exam alert, oriented x 3, clear to auscultation bilaterally and regular rate & rhythm Airway Submandibular: within normal limits Cervical ROM: within normal limits Mallampati: Class II Dentition: full Anesthetic Plan ASA status: 3 Anesthesia: General Other: No prior issues with anesthesia NPO since yesterday evening History of GERD on omeprazole Untreated hypertension, BP 154/80 Recent labs reviewed acceptable for procedure Plan for GETA Medications/Allergies Home Medications ?Medication ?Instructions ?Recorded ?Confirmed ?Last Taken ?Type omeprazole 20 mg capsule,delayed 20 mg PO BID 01/26/20 07/30/24 08/02/24 History release multivitamin 1 tab PO DAILY 01/17/21 08/02/24 07/30/24 History coenzyme Q10 30 mg capsule (CoQ-10) 30 mg PO DAILY 08/03/22 07/30/24 07/30/24 History omega-3 fatty acids 1,000 mg 1,000 mg PO DAILY 08/03/22 07/30/24 07/30/24 History capsule Allergies Allergy/AdvReac Type Severity Reaction Status Date / Time No Known Allergies Allergy Verified 08/02/24 07:07 Current Medications Generic Name Dose Route Start Last Admin Trade Name Freq PRN Reason Stop Dose Admin Sodium Chloride 1,000 mls @ 30 mls/hr 08/02/24 07:00 08/02/24 07:08 Sodium Chloride 0.9% IV 08/03/24 06:59 30 mls/hr .Q24H LEIA Administration PFSH Anesthesia Medical History No pertinent family history GERD (gastroesophageal reflux disease) Family History (Updated 07/14/24 @ 10:27 by FATUMA Duvall) Family/Other Colon cancer uncle Social History Smoking and tobacco/nicotine status: former use of tobacco/nicotine Alcohol intake: current Alcohol intake frequency: few times a month Substance/Drug Use: never Data Anesthesia Cardiac Studies: No Data to Display
[2024-08-02] MEDS: ceFAZolin 2,000 mg SDV 2000 MG IVP (08:53)
[2024-08-02] MEDS: lidocaine-epi 1% 20 mL INJ INJECTION (09:32)
[2024-08-02] MEDS: BUPivacaine 0.25% INJ 10 mL INJECTION (09:32)
--- NOTE | 2024-08-02 10:08 | PM.OP ---
Operative Report Date of procedure: August 02, 2024 Pre-op diagnosis: Symptomatic cholelithiasis Post-op diagnosis: same Post-op findings: Normal biliary anatomy Procedure done: Laparoscopic cholecystectomy Pathology: Gallbladder and contents Surgeon: Malik Johnston MD Undergraduate Intern: Rashawn OR Staff Estimated blood loss: 5 Brief History: 64-year-old male with symptomatic lithiasis who presented to my office for possible lap huey. We discussed all risk and benefits of decided to proceed. Procedure: Patient was brought into the OR, he was placed in a supine position. General anesthesia was given. The abdomen was prepped and draped in the usual sterile fashion. A timeout was conducted. I accessed the abdomen via a 5 mm Optiview port in the left upper quadrant. Initial pneumoperitoneum was obtained and no evidence of visceral injury during entry was noted. At 12 mm trocar was placed in the supraumbilical position under direct visualization. Additional 5 mm trocars were placed in the epigastrium right upper quadrant and right flank under direct visualization. The gallbladder was grasped from the fundus and retracted cephalad, I then grasped the infundibulum and retracted in the inferolateral direction exposing the hepatocystic triangle. The peritoneum anterior to the hepatocystic triangle was opened with electrocautery, I carried this opening in the medial and lateral direction to the edges of the liver and then on the sides of the gallbladder to allow for better exposure. With careful blunt dissection as well as electrocautery I was able to encircle the cystic duct and artery, I also elevated lower third of the gallbladder from the liver bed, thus creating a critical view of safety. The cystic duct and artery were double clipped proximally and single clipped distally and transected. The gallbladder was removed from the liver bed using electrocautery. The gallbladder was retrieved in an Endo Catch bag via the umbilical trocar site. The liver bed and clips were inspected the area was hemostatic, there was no evidence of bile leak the clips appeared to be in good position. The liver bed was irrigated and suctioned. The medical trocar was removed and umbilical trocar site was closed with a 0 Vicryl Babatunde-Yoel suture passer under direct visualization. The epigastrium right upper quadrant right flank trocars were removed under direct visualization, the left upper quadrant trocar was used to evacuate the pneumoperitoneum and subsequently removed. Local anesthesia was infiltrated. Hemostasis was achieved from the trocar sites. The wounds were closed in layers using #3-0 Vicryl for the subcutaneous tissue #4 Monocryl for the skin. At the end of the procedure all counts were correct, the patient tolerated well the procedure was transferred to the PACU in stable condition.
[2024-08-02] MEDS: fentaNYL 50 mcg/mL INJ 2mL IVP (10:29)
[2024-08-02] MEDS: oxyCODONE 5 mg IR Tab/Cap PO (11:09)
--- NOTE | 2024-08-02 11:55 | ANE.PACU2 ---
Inpatient post-anesthesia follow up: Airway intact: Yes Vital signs: Temperature 97.0 F Pulse Rate 77 Respiratory Rate 18 Blood Pressure 124/79 Pulse Oximetry 94 Oxygen Delivery Me thod Room Air Oxygen Flow Rate Fraction of Inspir ed Oxygen Hydration adequate: Yes Nausea and vomiting: No Pain level: 1 Mental status: Baseline
== END 2024-08-02 11:55 | disposition home or self-care (01) ==
PROVIDERS: PCP Nurse Practitioner; Visit Provider Surgery
PROC: 0FT44ZZ Resection of Gallbladder, Percutaneous Endoscopic Approach (ICD-10-PCS; CPT 47562; principal; 2024-08-02 08:05)
DX: K80.10 Calculus of gallbladder with chronic cholecystitis without obstruction (principal); K21.9 Gastro-esophageal reflux disease without esophagitis; Z79.899 Other long term (current) drug therapy; Z87.891 Personal history of nicotine dependence
CPT/HCPCS: 47562; 88304; A4216; J0690; J1100; J2371; J2405; J2704; J3010; J3490; J7030

== ENCOUNTER → 2024-08-18 09:04 | Outpatient (BNVA) | payer OTHER, SELFPAY | PROVIDERS: PCP Emergency Medicine Emergency Medical Services; Visit Provider Surgery | DX: Z90.49 Acquired absence of other specified parts of digestive tract (principal); Z98.890 Other specified postprocedural states | CPT/HCPCS: 99024 ==

== ENCOUNTER → 2024-12-21 08:28 | Outpatient (BNVA) | payer OTHER, SELFPAY | PROVIDERS: PCP Emergency Medicine Emergency Medical Services; Visit Provider Nurse Practitioner Family | DX: D17.1 Benign lipomatous neoplasm of skin and subcutaneous tissue of trunk (principal); L82.1 Other seborrheic keratosis; L81.4 Other melanin hyperpigmentation; D22.5 Melanocytic nevi of trunk; L57.0 Actinic keratosis | CPT/HCPCS: 17000; 99213 ==

== ENCOUNTER 2024-12-23 10:32 | Outpatient (CLI) | payer OTHER, SELFPAY ==
--- NOTE | 2024-12-23 10:40 | MR_ITS ---
WS: [id number] MRI LUMBAR SPINE NONCONTRAST TECHNIQUE: Sagittal T1, T2 and STIR imaging. Axial T1 and T2 imaging. CLINICAL INFORMATION: LOW BACK PAIN COMPARISON: None. FINDINGS: Mild lumbar curve. No acute compression. No high-grade central canal stenosis. L1-L2: Shallow RIGHT subarticular protrusion impinges the RIGHT subarticular recess and traversing RIGHT L2 nerve root. Mild RIGHT foraminal narrowing. Mild facet arthropathy. Mild central canal stenosis. L2-L3: LEFT subarticular protrusion. Mild central canal stenosis. Mild facet arthropathy. Mild LEFT foraminal narrowing. L3-L4: Shallow central disc protrusion. Moderate central canal stenosis with crowding of the cauda equina nerve rootlets. Moderate facet arthropathy with prominent epidural fat. Impingement on the traversing L4 nerve roots. Mild bilateral foraminal narrowing with small foraminal protrusions. L4-L5: Mild disc bulging with impingement on the RIGHT greater than LEFT subarticular recess. Impingement traversing RIGHT L5 nerve root. Mild bilateral LEFT greater than RIGHT foraminal narrowing. L5-S1: Shallow RIGHT subarticular protrusion impinges the traversing RIGHT S1 nerve root in the subarticular recess. Moderate facet arthropathy. Moderate LEFT and mild RIGHT foraminal narrowing. Mild facet arthropathy. Visualized pelvic bony structures: Normal. Paravertebral soft tissues: Normal. MR/MR lumbar spine wo con* [id number] IMPRESSION: 1. Mild lumbar curve. No acute compression. 2. Moderate central canal stenosis L3-4 due to central disc bulging combinatio n with facet arthropathy and prominent epidural fat. Crowding of the cauda equi na nerve rootlets. Impingement of traversing L4 nerve roots bilaterally. Recomm end spine surgery consultation. 3. LEFT subarticular protrusion L2-3 impinges the traversing LEFT L3 nerve rich t with mild central canal stenosis. 4. Shallow RIGHT paracentral protrusion L1-2 impinges the traversing RIGHT L2 nerve root with mild central canal stenosis. 5. RIGHT subarticular protrusion L4-5 impinges the traversing RIGHT L5 nerve r oot in the subarticular recess. 6. Slight impingement on the traversing RIGHT S1 nerve root in the subarticula r recess at L5-S1. 7. Moderate LEFT L5-S1 foraminal narrowing.
== END 2024-12-23 10:33 | disposition home or self-care (01) ==
LOC: RAD 10:33
PROVIDERS: PCP Emergency Medicine Emergency Medical Services; Visit Provider Nurse Practitioner
DX: M51.16 Intervertebral disc disorders with radiculopathy, lumbar region (principal); M48.061 Spinal stenosis, lumbar region without neurogenic claudication
CPT/HCPCS: 72148

== ENCOUNTER 2025-02-21 10:07 | Outpatient (CLI) | payer OTHER, SELFPAY ==
--- NOTE | 2025-02-21 10:12 | CT_ITS ---
WS: [id number] CT NECK TECHNIQUE: Contrast-enhanced CT of the neck with coronal and sagittal reformatted images. CLINICAL INFORMATION: SLIGHT MASS AT BASE OF NECK COMPARISON: None. DLP: 216.[address] scans at [facility] use at least one of these dose optimization techniques: automated exposure control; mA and/or kV adjustment per patient size (includes targeted exams where dose is matched to clinical indication); or iterative reconstruction. FINDINGS: Bilateral BBs in the area of concern near the sternoclavicular joints. 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 No evidence of pathologic mass or lesion. No bony destruction. Parotid glands are normal. Submandibular glands are normal. Mastoid air cells are well aerated. Partially visualized paranasal sinuses are well aerated. Normal parapharyngeal fat. Tonsillar calcifications. No evidence of supraglottic or glottic mass. Normal subglottic airway. Normal thyroid. Lung apices are well aerated. Prior postoperative changes ACDF C3-C7. Sclerotic bone island C4 posterior elements stable since 2019. CT/CT neck w con* [id number] IMPRESSION: Bilateral BBs in the area of concern near the sternoclavicular joints. Degenera tive arthritis of the sternoclavicular joints with synovial thickening likely i nflammatory. No evidence of pathologic mass or lesion. No bony destruction.
[2025-02-21] MEDS: iohexol 350 mg/mL 500 mL Btl (per mL) IV (10:45)
== END 2025-02-21 10:08 | disposition home or self-care (01) ==
LOC: RAD 10:08
PROVIDERS: PCP Nurse Practitioner; Visit Provider Nurse Practitioner
DX: Z01.89 Encounter for other specified special examinations (principal); Z98.890 Other specified postprocedural states; Z18.12 Retained nonmagnetic metal fragments; M13.88 Other specified arthritis, other site
CPT/HCPCS: 70491